=== PATIENT | female | born 1960 | race Caucasian/White ===

== ENCOUNTER 2017-02-16 14:03 | Outpatient (RCR) | payer BC, OTHER ==
--- OUTSIDE RECORDS SUMMARY | 2016-12-09 14:36 | XMS REPORT | Continuity of Care Document ---
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 No data available for this section No data available for this section [facility]. Results Order Name Results Value Reference Range Date Interpretation Comments Source Vital Signs Vital Sign Value Date Comments Source Encounters Location Location Details Encounter Type Encounter Number Reason For Visit Attending Provider ADM Date DC Date Status Source [facility] [id number] Clinic ( Outpatient) [id number] Pauline Swartz 2016 Active [facility] [id number] Clinic ( Outpatient) [id number] Pauline Swartz 10/15/2016 Active [facility] [id number] Clinic ( Outpatient) [id number] Pauline Swatrz 10/18/2016 Active [facility] [id number] Clinic ( Outpatient) [id number] Pauline Swartz 10/14/2016 Active [facility] [id number] Pauline Swartz 2016 10/09/2016 [facility] [id number] CD:[id number] Blair Bertrand 10/21/2016 Active [facility] [id number] [id number] Lelo De Leon 10/21/2016 11/03/2016 Active [facility] [id number] Pauline Swartz 10/18/2016 [facility]/19/2016 [id number] [id number] Donte Mcmahon 11/17/2016 [place] [facility] [id number] Blair Bertrand 10/21/2016 10/23/2016 [facility] [id number] Kian Yin 10/21/2016 10/23/2016 [facility] Procedures Procedure Code Date Perfomer Comments Source excision of fatty tumor under left rib [facility]. hysterectomy - total [facility]. left knee surgery [facility]. tubal ligation [facility]. No data available for this section [facility].
[2016-12-21 16:55] LABS: THYROID STIMULATING HORMONE 0.61 UIU/ML (0.35-4.94)
== END 2017-03-21 | disposition home or self-care (01) ==
LOC: ONC 14:03
PROVIDERS: ATTEND Radiology Radiation Oncology
DX: Z51.0 Encounter for antineoplastic radiation therapy (principal); C50.412 Malignant neoplasm of upper-outer quadrant of left female breast; Z17.0 Estrogen receptor positive status [ER+]
CPT/HCPCS: 36415; 77280; 77290; 77295; 77300; 77307; 77332; 77334; 77336; 77417; 84439; 84443; 99214

== ENCOUNTER 2017-03-29 13:51 | Outpatient (RCR) | payer BC | END 2017-06-27 | disposition home or self-care (01) | LOC: ONC 13:51 | PROVIDERS: ATTEND Radiology Radiation Oncology | DX: C50.412 Malignant neoplasm of upper-outer quadrant of left female breast (principal); Z17.0 Estrogen receptor positive status [ER+] | CPT/HCPCS: 99213 ==

== ENCOUNTER → 2018-03-21 | Outpatient (CLI) | payer BC, OTHER | LOC: EDSTATUS 06-28 14:24 → ONC 14:31 | PROVIDERS: ATTEND Radiology Radiation Oncology | DX: C50.412 Malignant neoplasm of upper-outer quadrant of left female breast (principal); Z17.0 Estrogen receptor positive status [ER+] | CPT/HCPCS: 99213 ==